=== PATIENT | female | born 1990 | race Caucasian/White ===

== ENCOUNTER 2020-01-01 15:01 | Emergency (ER) | payer SELFPAY ==
[~2020-01-01] VITALS: Ht 170.1 cm; Wt 56.7 kg
== END 2020-01-01 16:48 | disposition left against medical advice (07) ==
LOC: ED 15:01
DX: R07.81 Pleurodynia (principal); M25.561 Pain in right knee; R51 Headache; F17.200 Nicotine dependence, unspecified, uncomplicated